=== PATIENT | male | born 1985 | race Caucasian/White ===

== ENCOUNTER 2017-11-14 09:44 | Emergency (ER) | payer SELFPAY ==
[~2017-11-14] VITALS: Ht 157.5 cm; Wt 78.0 kg
[~2017-11-14 09:44] MED LIST: HYDR-3533 PO; IBUP-238 PO; LEVA500T PO; PERC10TA26 PO; Z.0.NO CURRENT MEDS
[2017-11-14 09:51] VITALS: BP 162/58; PULSE 63; RESP 14; TEMP 97.8; O2SAT 98
[2017-11-14] MEDS ORDERED: MORPHINE SULFATE 4 MG/ML INJ IV PUSH ONE (10:15)
[2017-11-14] MEDS ORDERED: ONDANSETRON HCL 4 MG/2 ML VIAL IV PUSH ONE (10:15)
[2017-11-14] MEDS ORDERED: SODIUM CHLORIDE 0.9% FLUSH 10 ML FLUSH IVF PRN (10:15)
--- NOTE | 2017-11-14 10:32 | PD ---
HPI . Abdominal pain Chief Complaint: Abdominal Pain Time Seen by Provider: 09:56 Travel History International Travel<30 days: No Contact w/Intl Traveler<30days: No Traveled to known affect area: No History of Present Illness HPI This is a man who speaks no German who presents to us with a chief complaint of left upper quadrant abdominal pain. He is here with a friend or coworker he does speak German. 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 He has had persistent pain since that time. Pain is exacerbated by movement. Pain is relieved by certain positions. Pain is rated 4/10. He denies any associated symptoms such as difficulty breathing,, hematuria, anorexia, vomiting, diarrhea. His friend brought him ibuprofen but he has not been taking the ibuprofen because it makes him feel dizzy. PFSH Past Medical History Cancer: No Cardiovascular Problems: No Endocrine: No Genitourinary: Yes Immune Disorder: No Kidney Stones: Yes Musculoskeletal: No Neurologic: No Psychiatric: No Reproductive: No Respiratory: No Past Surgical History Surgical History: No Previous Surgery Social History Alcohol Use: No Tobacco Use: No Substance Use: No Allergies-Medications (Allergen,Severity, Reaction): Coded Allergies: No Known Allergies (Verified Adverse Reaction, Unknown, 11/14/17) Reported Meds & Prescriptions Reported Meds & Active Scripts Active No Active Prescriptions or Reported Medications Review of Systems Except as stated in HPI: all other systems reviewed are Neg Physical Exam Narrative GENERAL: Awake and alert and in no acute distress. SKIN: warm/dry. Normal color and turgor. HEAD: Normocephalic. Atraumatic. EYES: Pupils equal and round. No scleral icterus. No injection or drainage. ENT: No nasal bleeding or discharge. Mucous membranes pink and moist. NECK: Trachea midline. Full range of motion without pain.. CARDIOVASCULAR: Regular rate and rhythm. Heart sounds are normal. RESPIRATORY: No accessory muscle use. Clear to auscultation. Breath sounds equal bilaterally. No crepitus of the rib cage. GASTROINTESTINAL: No bruising or abrasions. Abdomen soft. Left upper quadrant tenderness. Bowel sounds present. Nondistended. MUSCULOSKELETAL: No obvious deformities. NEUROLOGICAL: Awake and alert. No obvious cranial nerve deficits. Motor grossly within normal limits. Normal speech. PSYCHIATRIC: Appropriate mood and affect; insight and judgment normal. Data Data Last Documented VS Vital Signs Date Time Temp Pulse Resp B/P (MAP) Pulse Ox O2 Delivery O2 Flow Rate FiO2 11/14/17 09:51 97.8 63 14 162/58 (92) 98 Orders Orders Basic Metabolic Panel (Bmp) (11/14/17 10:02) Complete Blood Count With Diff (11/14/17 10:02) Ct Abd/Pel W Iv Contrast(Rout) (11/14/17 10:02) Iv Access Insert/Monitor (11/14/17 10:02) Morphine Inj (Morphine Inj) (11/14/17 10:15) Ondansetron Inj (Zofran Inj) (11/14/17 10:15) Sodium Chloride 0.9% Flush (Ns Flush) (11/14/17 10:15) Iohexol 350 Inj (Omnipaque 350 Inj) (11/14/17 12:09) Labs Laboratory Tests Test 11/14/17 10:24 White Blood Count 5.2 TH/MM3 Red Blood Count 5.44 MIL/MM3 Hemoglobin 16.6 GM/DL Hematocrit 48.0 % Mean Corpuscular Volume 88.3 FL Mean Corpuscular Hemoglobin 30.5 PG Mean Corpuscular Hemoglobin Concent 34.6 % Red Cell Distribution Width 12.7 % Platelet Count 249 TH/MM3 Mean Platelet Volume 8.8 FL Neutrophils (%) (Auto) 53.1 % Lymphocytes (%) (Auto) 37.4 % Monocytes (%) (Auto) 5.8 % Eosinophils (%) (Auto) 2.7 % Basophils (%) (Auto) 1.0 % Neutrophils # (Auto) 2.8 TH/MM3 Lymphocytes # (Auto) 2.0 TH/MM3 Monocytes # (Auto) 0.3 TH/MM3 Eosinophils # (Auto) 0.1 TH/MM3 Basophils # (Auto) 0.1 TH/MM3 CBC Comment DIFF FINAL Differential Comment Blood Urea Nitrogen 13 MG/DL Creatinine 0.97 MG/DL Random Glucose 102 MG/DL Calcium Level 9.2 MG/DL Sodium Level 143 MEQ/L Potassium Level 4.1 MEQ/L Chloride Level 107 MEQ/L Carbon Dioxide Level 29.4 MEQ/L Anion Gap 7 MEQ/L Estimat Glomerular Filtration Rate 90 ML/MIN MDM Medical Decision Making Medical Screen Exam Complete: Yes Emergency Medical Condition: Yes Differential Diagnosis Differential diagnosis of blunt abdominal trauma includes but is not limited to abdominal wall contusion, solid organ injury, bowel injury, hemoperitoneum Narrative Course This patient presents for evaluation of left upper quadrant pain which started after a blow to the abdomen for 5 days ago. He does not have any concerning associated symptoms. He does have some tenderness to palpation on exam. CT of the abdomen and pelvis is pending as are routine labs. CBC & BMP Diagram 11/14/17 10:[address]: Stable large right renal stones. Tiny nonobstructing left renal stones. Stable otherwise benign unremarkable CT appearance of the abdomen and pelvis. No intra-abdominal injury was identified. This patient is stable for discharge to home. Diagnosis Primary Impression: Blunt abdominal trauma Qualified Codes: S39.81XA - Other specified injuries of abdomen, initial encounter Patient Instructions: Blunt Abdominal Injury (DC), General Instructions Scripts No Active Prescriptions or Reported Meds Disposition: 01 DISCHARGE HOME Condition: Stable Elizabeth Soto MD November 14, 2017 10:32
[2017-11-14 10:46] LABS: AUTOMATED NEUTROPHIL # 2.8 TH/MM3 (1.8-7.7); BASOPHIL # 0.1 TH/MM3 (0-0.2); EOSINOPHIL # 0.1 TH/MM3 (0-0.4); EOSINOPHIL % 2.7 % (0.0-4.0); HEMOGLOBIN 16.6 GM/DL (13.0-17.0); LYMPH % 37.4 % (9.0-44.0); MEAN CELL VOLUME 88.3 FL (80.0-100.0); MEAN CORPUSCULAR HEMOGLOBIN 30.5 PG (27.0-34.0); MEAN CORPUSCULAR HGB CONC 34.6 % (32.0-36.0); MEAN PLATELET VOLUME 8.8 FL (7.0-11.0); MONO % 5.8 % (0.0-8.0); MONOCYTE # 0.3 TH/MM3 (0-0.9); NEUT % 53.1 % (16.0-70.0); PLATELET COUNT 249 TH/MM3 (150-450); RED BLOOD COUNT 5.44 MIL/MM3 (4.50-5.90); RED CELL DISTRIBUTION WIDTH 12.7 % (11.6-17.2); WHITE BLOOD COUNT 5.2 TH/MM3 (4.0-11.0)
[2017-11-14 11:05] LABS: BICARBONATE 29.4 MEQ/L (21.0-32.0); CALCIUM 9.2 MG/DL (8.5-10.1); CREATININE 0.97 MG/DL (0.60-1.30)
[2017-11-14] MEDS ORDERED: IOHEXOL 350 MG/ML 10 ML VIAL (for RAD DIAG) IVCONTRAST ONE (12:09)
--- NOTE | 2017-11-14 12:23 | RADRPT ---
EXAM DATE/TIME: 11/14/2017 12:02 [facility] COMPARISON: CT ABDOMEN & PELVIS W/O CONTRAST, July 13, 2016, 22:20. INDICATIONS : Left upper quadrant pain for two weeks. IV CONTRAST: 90 cc Omnipaque 350 (iohexol) IV ORAL CONTRAST: No oral contrast ingested. RADIATION DOSE: 6.45 CTDIvol (mGy) MEDICAL HISTORY : None SURGICAL HISTORY : None. ENCOUNTER: Initial ACUITY: 1 day PAIN SCALE: 0/10 LOCATION: Left upper quadrant TECHNIQUE: Volumetric scanning of the abdomen and pelvis was performed. Using automated exposure control and ad justment of the mA and/or kV according to patient size, radiation dose was kept as low as reasonably achievable to obtain optimal diagnostic quality images. DICOM format image data is available electro nically for review and comparison. FINDINGS: LOWER LUNGS: The visualized lower lungs are clear. LIVER: Homogeneous density without lesion. There is no dilation of the biliary tree. No calcified gallston es. SPLEEN: Normal size without lesion. PANCREAS: Within normal limits. KIDNEYS: Large stone fragments in the right renal pelvis and lower pole collecting system are grossly unchange d with moderate hydronephrosis associated. Likely tiny nonobstructing stones in the upper and lower p ole collecting system of the contralateral left kidney. ADRENAL GLANDS: Within normal limits. VASCULAR: There is no aortic aneurysm. BOWEL/MESENTERY: The stomach, small bowel, and colon demonstrate no acute abnormality. There is no free intraperitone al air or fluid. ABDOMINAL WALL: Within normal limits. RETROPERITONEUM: There is no lymphadenopathy. BLADDER: No wall thickening or mass. REPRODUCTIVE: Within normal limits. INGUINAL: There is no lymphadenopathy or hernia. MUSCULOSKELETAL: Within normal limits for patient age. CONCLUSION: Stable large right renal stones. Tiny nonobstructing left renal stones. Stable otherwise benign unremarkable CT appearance of the abdomen and pelvis. Heriberto Douglas MD on November 14, 2017 at 12:16 Board Certified Radiologist. This report was verified electronically.
== END 2017-11-14 12:57 | disposition home or self-care (01) ==
LOC: NEPD 09:44
DX: S39.81XA Other specified injuries of abdomen, initial encounter (principal); N20.0 Calculus of kidney; W22.8XXA Striking against or struck by other objects, initial encounter; Y92.69 Other specified industrial and construction area as the place of occurrence of the external cause; Y99.0 Civilian activity done for income or pay; Z87.442 Personal history of urinary calculi
CPT/HCPCS: 74177; 80048; 85025; 96374; 96375; 99285; J2270; J2405; Q9967

== ENCOUNTER 2017-12-02 09:34 | Emergency (ER) | payer SELFPAY ==
[~2017-12-02] VITALS: Ht 160 cm; Wt 60.0 kg
[2017-12-02 09:40] VITALS: BP 145/79; PULSE 63; RESP 16; TEMP 98.2; O2SAT 100
--- NOTE | 2017-12-02 14:00 | PD ---
HPI Chief Complaint: Flank/Kidney Pain Time Seen by Provider: 13:29 Travel History International Travel<30 days: No Contact w/Intl Traveler<30days: No Traveled to known affect area: No History of Present Illness HPI 32-year-old male presents to the emergency room for reevaluation of left upper quadrant rib pain for the past 2 weeks. Patient is primarily Greek-speaking but preferred to have his friend interpret for him. Patient states about 2 weeks ago he hit his side against scaffolding while at work. He had immediate pain and came to the ED. He had a negative workup including negative abdomen/ pelvis CT. He has had pain since then. Pain is worsened with certain range of motion or leaning forward. States it is painful to take a deep breath. It is localized to the left rib cage without radiation. He has not taken anything for symptoms. No associated symptoms. No nausea, vomiting, diarrhea, or decreased appetite. PFSH Past Medical History Cancer: No Cardiovascular Problems: No Endocrine: No Genitourinary: Yes Immune Disorder: No Kidney Stones: Yes Musculoskeletal: No Neurologic: No Psychiatric: No Reproductive: No Respiratory: No Tetanus Vaccination: > 5 Years Past Surgical History Surgical History: No Previous Surgery Social History Alcohol Use: No Tobacco Use: No Substance Use: No Allergies-Medications (Allergen,Severity, Reaction): Coded Allergies: No Known Allergies (Verified Adverse Reaction, Unknown, 11/14/17) Reported Meds & Prescriptions Reported Meds & Active Scripts Active Ibuprofen 600 Mg Tab 600 Mg PO Q8HR PRN Lidocaine Patch 12 HR (Lidocaine) 5 % Patch 1 Patch TOPICAL DAILY PRN Remove patch after 12 hours Review of Systems Except as stated in HPI: all other systems reviewed are Neg Physical Exam Narrative GENERAL: Well-nourished, well-developed male in no acute distress. Afebrile. Ambulatory. SKIN: Focused skin assessment warm/dry. HEAD: Normocephalic. EYES: No scleral icterus. No injection or drainage. NECK: Supple, trachea midline. No JVD or lymphadenopathy. CARDIOVASCULAR: Regular rate and rhythm without murmurs, gallops, or rubs. RESPIRATORY: Breath sounds equal bilaterally. No accessory muscle use. CHEST: Tenderness to palpation of the left anterior rib cage without deformity or crepitus. No retractions or use of accessory muscles. GASTROINTESTINAL: Abdomen soft, non-tender, nondistended. Data Data Last Documented VS Vital Signs Date Time Temp Pulse Resp B/P (MAP) Pulse Ox O2 Delivery O2 Flow Rate FiO2 12/02/17 09:40 98.2 63 16 145/79 (101) 100 Orders Orders Ed Discharge Order (12/02/17 14:00) [facility] Medical Decision Making Medical Screen Exam Complete: Yes Emergency Medical Condition: Yes Medical Record Reviewed: Yes Differential Diagnosis Rib fracture, contusion, splenic laceration Narrative Course 32-year-old male presents to the emergency room for evaluation of left sided rib pain for the past 2 weeks. Patient states it is ribs on scaffolding 2 weeks ago. He came to the emergency room and had a CT abdomen/pelvis that was negative. States he has had pain since then. Physical exam is reassuring. Patient resting comfortably in bed. Abdomen soft, nontender. There is mild to moderate tenderness to palpation over the left anterior rib cage. No crepitus. No obvious deformity. Lung sounds clear and equal bilaterally. Vital signs stable. Patient is in no acute distress not working to breathe. He is requesting pain medication. Patient was informed that Tylenol, Motrin, and lidocaine patches will be adequate. Told to follow-up the primary care physician or return to the emergency room for worsening symptoms. He understands and agrees to plan. Diagnosis Primary Impression: Rib pain on left side Referrals: Primary Care Physician Additional Instructions: Rest and drink plenty of fluids. Lidocaine patches as directed. Take ibuprofen with food as directed, as needed for pain. Apply ice to the affected area for 20 minutes at a time, as needed for pain and swelling. Follow-up with a primary care physician. Return to the emergency room for worsening symptoms. Med/Other Pt SpecificInfo: Prescription(s) given Scripts Ibuprofen (Ibuprofen) 600 Mg Tab 600 MG PO Q8HR Y for PAIN, #15 TAB 0 Refills Prov: Paola Lizarraga MD 12/02/17 Lidocaine Patch 12 HR (Lidocaine Patch 12 HR) 5 % Patch 1 PATCH TOPICAL DAILY Y for PAIN, #1 BOX 0 Refills Remove patch after 12 hours Prov: Paola Lizarraga MD 12/02/17 Disposition: 01 DISCHARGE HOME Condition: Stable Pauly Rai December 02, 2017 14:00
[2017-12-02] MEDS ORDERED: LIDO1PAD52 TOPICAL (14:01)
[2017-12-02] MEDS ORDERED: IBUP-232 PO (14:01)
== END 2017-12-02 14:11 | disposition home or self-care (01) ==
LOC: NEPD 09:34
DX: R07.81 Pleurodynia (principal)
CPT/HCPCS: 99283